=== PATIENT | female | born 1975 | race Caucasian/White ===

== ENCOUNTER 2017-11-22 13:50 | Outpatient (CLI) | payer OTHER | END 2017-11-22 13:51 | disposition home or self-care (01) | LOC: BICMAMMO 13:50 | PROVIDERS: ATTEND Internal Medicine | DX: Z12.31 Encounter for screening mammogram for malignant neoplasm of breast (principal); R92.1 Mammographic calcification found on diagnostic imaging of breast | CPT/HCPCS: 77063; 77067 ==

== ENCOUNTER 2018-02-06 14:31 | Outpatient (CLI) | payer OTHER ==
--- NOTE | 2018-02-06 17:04 | MRI ---
MRI CERVICAL SPINE WITHOUT CONTRAST: Date: 02/06/18 HISTORY: Skin paresthesia. COMPARISON: None. TECHNIQUE: Cervical spine MRI is performed without intravenous Gadolinium administration. Multisequential, multi planar imaging is performed. FINDINGS: Multiple sequences were repeated due to motion. There is straightening of the normal cervical lordosis, which may be due to patient position, muscle spasm, or cervical collar. Vertebral body height is maintained. There is no fracture. No significant STIR hyperintensity to suggest vertebral body edema or ligamentous injury. Visualized brain parenchyma, cervicomedullary junction, cervical cord, and the upper thoracic cord [place] ve a normal size and signal intensity. C2-C3: No significant central canal stenosis or foraminal narrowing. C3-C4: No significant central canal stenosis or foraminal narrowing. C4-C5: No significant central canal stenosis or foraminal narrowing. C5-C6: There is moderate loss of disc space height. Generalized disc bulge effaces the ventral subarachnoid space. There is mild central canal stenosis. Mild to moderate bilateral neural foraminal narrowing. C6-C7: No significant central canal stenosis or foraminal narrowing. C7-T1: No significant central canal stenosis or foraminal narrowing. IMPRESSION: Degenerative disc disease at C5-C6 as described above. There is mild central canal stenosis. There is mild to moderate bilateral foraminal narrowing. POS: [facility]
== END 2018-02-06 14:32 | disposition home or self-care (01) ==
LOC: SCSMRI 14:31
PROVIDERS: ATTEND Psychiatry & Neurology Neurology
DX: R20.2 Paresthesia of skin (principal); M50.322 Other cervical disc degeneration at C5-C6 level; M48.02 Spinal stenosis, cervical region; M99.81 Other biomechanical lesions of cervical region
CPT/HCPCS: 72141

== ENCOUNTER 2018-12-11 08:22 | Outpatient (CLI) | payer OTHER ==
--- NOTE | 2018-12-11 09:02 | MMO ---
Bilateral MAMMO Bilat Screen [facility]. CLINICAL HISTORY: Patient is 43 years old and is seen for screening. The patient has no family history of breast cancer. The patient has no personal history of cancer. VIEWS: The views performed were: bilateral craniocaudal with tomosynthesis; bilateral mediolateral oblique with tomosynthesis; and bilateral exaggerated craniocaudal. FILMS COMPARED: The present examination has been compared to a prior imaging study performed at [facility] on 11/22/2017. MAMMOGRAM FINDINGS: There are scattered fibroglandular densities. There are no suspicious masses, suspicious calcifications, or new areas of architectural distortion. IMPRESSION: THERE IS NO MAMMOGRAPHIC EVIDENCE OF MALIGNANCY. A ROUTINE FOLLOW-UP MAMMOGRAM IN 1 YEAR IS RECOMMENDED. THE RESULTS OF THIS EXAM WERE SENT TO THE PATIENT. ACR BI-RADS Category 1 - Negative MAMMOGRAPHY NOTE: 1. A negative mammogram report should not delay a biopsy if a dominant of clinically suspicious mass is present. 2. Approximately 10% to 15% of breast cancers are not detected by mammography. 3. Adenosis and dense breasts may obscure an underlying neoplasm. Reported by: CIRO FORD MD Electonically Signed: [id number]
== END 2018-12-11 08:23 | disposition home or self-care (01) ==
LOC: BICMAMMO 08:22
PROVIDERS: ATTEND Internal Medicine
DX: Z12.31 Encounter for screening mammogram for malignant neoplasm of breast (principal)
CPT/HCPCS: 77063; 77067

== ENCOUNTER 2019-11-21 12:06 | Outpatient (CLI) | payer OTHER ==
--- NOTE | 2019-11-21 12:50 | RAD ---
EXAM: Rib x-ray: Right 2 views chest one view HISTORY: Right-sided rib pain COMPARISON: None FINDINGS: No evidence for acute fracture or dislocation. No evidence for pneumothorax or pleural effusion. No evidence for a bone lesion. No evidence for other significant acute process. IMPRESSION: Unremarkable ribs.
== END 2019-11-21 12:07 | disposition home or self-care (01) ==
LOC: BICRAD 12:06
PROVIDERS: ATTEND Internal Medicine
DX: R07.81 Pleurodynia (principal)

== ENCOUNTER 2019-11-28 08:48 | Outpatient (CLI) | payer OTHER ==
--- NOTE | 2019-11-28 09:27 | MMO ---
Bilateral MAMMO Bilat Diag [facility]. CLINICAL HISTORY: Patient is 43 years old and is seen for diagnostic exam. The patient has no family history of breast cancer. The patient has no personal history of cancer. VIEWS: The views performed were: bilateral craniocaudal with tomosynthesis; bilateral mediolateral oblique with tomosynthesis; and bilateral mediolateral with tomosynthesis. FILMS COMPARED: The present examination has been compared to prior imaging studies performed at [facility] on 11/22/2017, 12/11/2018 and 11/28/2019, and at [facility] on 11/10/2016. This study has been interpreted with the assistance of computer-aided detection. MAMMOGRAM FINDINGS: There are scattered fibroglandular densities. No mammographic or sonograhic abnormality is seen at the site of palpable concern in the right breast. There are no suspicious masses, suspicious calcifications, or new areas of architectural distortion. IMPRESSION: THERE IS NO MAMMOGRAPHIC EVIDENCE OF MALIGNANCY. A ROUTINE FOLLOW-UP MAMMOGRAM IN 1 YEAR IS RECOMMENDED. THE RESULTS OF THIS EXAM WERE SENT TO THE PATIENT. ACR BI-RADS Category 2 - Benign finding MAMMOGRAPHY NOTE: 1. A negative mammogram report should not delay a biopsy if a dominant of clinically suspicious mass is present. 2. Approximately 10% to 15% of breast cancers are not detected by mammography. 3. Adenosis and dense breasts may obscure an underlying neoplasm. Reported by: RADHA SNOW MD Electonically Signed: [id number]
--- NOTE | 2019-11-28 09:34 | ULT ---
RIGHT BREAST ULTRASOUND: HISTORY: Palpable abnormality in the right upper outer breast. FINDINGS: Correlation is made with the mammograms of same date. Sonographic evaluation of the region of palpable concern was performed from the 9 through 11:00 posit ions of the right breast. No abnormality seen. IMPRESSION: BI-RADS Category 2-benign findings. Return to annual mammographic screening. BI-RADS 2 -- benign findings
== END 2019-11-28 08:49 | disposition home or self-care (01) ==
LOC: BICMAMMO 08:48
PROVIDERS: ATTEND Internal Medicine
DX: N63.10 Unspecified lump in the right breast, unspecified quadrant (principal)
CPT/HCPCS: 77066; G0279

== ENCOUNTER 2021-01-27 11:42 | Outpatient (CLI) | payer OTHER | END 2021-01-27 11:43 | disposition home or self-care (01) | LOC: BICMAMMO 11:42 | PROVIDERS: ATTEND Obstetrics & Gynecology | DX: Z12.31 Encounter for screening mammogram for malignant neoplasm of breast (principal) | CPT/HCPCS: 77063; 77067 ==

== ENCOUNTER 2021-07-13 09:59 | Outpatient (CLI) | payer BC ==
[2021-07-14 00:06] LABS: SARS-CoV-2 PCR by NAA Not Detected (NotDetected)
== END 2021-07-13 10:00 | disposition home or self-care (01) ==
LOC: LABBT 09:59
PROVIDERS: ATTEND Internal Medicine Gastroenterology
DX: Z20.822 Contact with and (suspected) exposure to COVID-19 (principal)
CPT/HCPCS: U0003; U0005

== ENCOUNTER 2021-07-16 10:51 | Day surgery (SDC) | payer BC ==
[2021-07-13 11:28] VITALS: BMI 30.6
[2021-07-16] MEDS ORDERED: Lidocaine 1% PF 5 ML VIAL ONE (12:47)
[2021-07-16] MEDS ORDERED: PROPOFOL 200 MG/20 ML VIAL ONE (12:47)
== END 2021-07-16 14:25 | disposition home or self-care (01) ==
LOC: SDC 10:51
PROVIDERS: ATTEND Internal Medicine Gastroenterology
PROC: 0DJD8ZZ Inspection of Lower Intestinal Tract, Via Natural or Artificial Opening Endoscopic (ICD-10-PCS; principal; 2021-07-16)
DX: Z12.11 Encounter for screening for malignant neoplasm of colon (principal); K57.30 Diverticulosis of large intestine without perforation or abscess without bleeding; K64.8 Other hemorrhoids; K64.4 Residual hemorrhoidal skin tags; K59.09 Other constipation; J45.909 Unspecified asthma, uncomplicated; Z80.0 Family history of malignant neoplasm of digestive organs; Z79.899 Other long term (current) drug therapy; Z88.2 Allergy status to sulfonamides
CPT/HCPCS: J2704

== ENCOUNTER 2024-03-20 19:34 | Inpatient (IN) | payer BC ==
[~2024-03-20 19:34] MED LIST: Iopamidol-370 76% 500 ML MDV (1 ML CHARGE) ONE
[2024-03-20 20:56] LABS: #Basophils 0.18 10x3/uL (0.0-0.2); %Basophils 1.5 % (0.0-1.0); %Eosinophils 0.8 % (0.0-10.0); %Monocytes 7.2 % (0.0-10.0); %Neutrophils 76.9 % (42.0-75.0); Hematocrit 32.3 % (36.0-47.0); Hemoglobin 9.4 g/dL (12.0-16.0); Mean Corpuscular HGB CONC 29.1 g/dL (32.0-36.0); Mean Corpuscular Hemoglobin 20.2 pg (27.0-31.0); Mean Corpuscular Volume 69.3 fL (78.0-98.0); Mean Platelet Volume 9.5 fL (7.4-10.4); Platelet Count 536 10x3/uL (130-400); RBC Distribution Width 19.7 % (11.5-14.5); Red Blood Cell (RBC) Count 4.66 mill/uL (4.20-5.40)
[2024-03-20 21:11] LABS: Burr Cells SLIGHT = 2-5 cells HPF (0-1); Hypochromia SLIGHT = 6-15 cells HPF (0-5); Microcytosis MODERATE=15-30 cells HPF (0-5); Ovalocytes MODERATE= 6-15 cells HPF (0-1); Platelet Adequacy Comment Platelets Increased; Polychromasia SLIGHT = 2-3 cells HPF (0-2); Tear Drops SLIGHT = 2-5 cells HPF (0-1)
[2024-03-20 21:19] LABS: BHCG - Serum Negative (NEGATIVE); Pregs Control Background? CLEAR/WHITE (CLR/WHITE); Pregs Control Bar Appear? YES (CONTROL BAR)
[2024-03-20 21:28] LABS: ALT (SGPT) 13 U/L (8-55); AST (SGOT) 15 U/L (5-34); Albumin 3.7 g/dL (3.5-5.0); Alkaline Phosphatase 97 U/L (40-110); Anion Gap 14 mmol/L (10-20); BUN (Urea Nitrogen) 9 mg/dL (7.0-18.7); Bilirubin, Total 0.3 mg/dL (0.2-1.2); Calc. Creatinine Clearance 0 mL/min (70-130); Calcium 9.1 mg/dL (7.8-10.44); Carbon Dioxide 19 mmol/L (22-29); Chloride 106 mmol/L (98-107); Estimated GFR 98; Globulin 3.7 g/dL (2.4-3.5); Glucose 110 mg/dL (70-105); Protein, Total 7.4 g/dL (6.0-8.3); Sodium 135 mmol/L (136-145); Troponin I 0.026 ng/mL (< 0.028)
[2024-03-20 21:56] LABS: Lipase 27 U/L (8-78)
[2024-03-20] MEDS ORDERED: Aspirin Chewable 81 MG TAB ONE (23:02)
[2024-03-20 23:43] LABS: Troponin I 0.443 ng/mL (< 0.028)
[2024-03-21] MEDS ORDERED: Enoxaparin 100 MG (1 mL) SYRINGE ONE (00:53)
[2024-03-21] MEDS ORDERED: Acetaminophen 650 MG Suppository PR PRN (01:44)
[2024-03-21] MEDS ORDERED: Nitroglycerin 0.4 MG TAB (25 Tab Bottle) SL PRN ×2 (01:44→12:58)
[2024-03-21] MEDS ORDERED: Morphine 2 MG/ML VIAL SLOW IVP PRN (02:24)
[2024-03-21] MEDS ORDERED: Nitroglycerin 2% Ointment 1 INCH/1 GM Packet ONE (03:31)
[2024-03-21 03:57] LABS: #Basophils 0.16 10x3/uL (0.0-0.2); %Basophils 1.1 % (0.0-1.0); %Eosinophils 0.3 % (0.0-10.0); %Lymphocytes 13.6 % (21.0-51.0); %Monocytes 5.9 % (0.0-10.0); %Neutrophils 78.4 % (42.0-75.0); Hematocrit 31.6 % (36.0-47.0); Hemoglobin 9.2 g/dL (12.0-16.0); Mean Corpuscular HGB CONC 29.1 g/dL (32.0-36.0); Mean Corpuscular Hemoglobin 20.1 pg (27.0-31.0); Mean Corpuscular Volume 69.1 fL (78.0-98.0); Mean Platelet Volume 9.6 fL (7.4-10.4); Platelet Count 499 10x3/uL (130-400); RBC Distribution Width 19.9 % (11.5-14.5); Red Blood Cell (RBC) Count 4.57 mill/uL (4.20-5.40)
[2024-03-21 04:04] LABS: Anion Gap 15 mmol/L (10-20); BUN (Urea Nitrogen) 7 mg/dL (7.0-18.7); Calc. Creatinine Clearance 0 mL/min (70-130); Calcium 8.8 mg/dL (7.8-10.44); Carbon Dioxide 17 mmol/L (22-29); Chloride 106 mmol/L (98-107); Estimated GFR 95; Glucose 108 mg/dL (70-105); Sodium 134 mmol/L (136-145)
[2024-03-21 04:06] LABS: Cardiac Risk 4.8 (Less than 4.5); Cholesterol 219 mg/dl (< 200 Desired); HDL Cholesterol 46 mg/dL (>60 Neg Risk); LDL Cholesterol, Calculated 144 mg/dL; Triglycerides 146 mg/dL (Less than 150)
[2024-03-21 04:17] LABS: Hemoglobin A1c 5.1 % (4.0-6.0)
[2024-03-21 05:59] VITALS: BMI 29.7
[2024-03-21] MEDS: Nitroglycerin 2% Ointment 1 INCH/1 GM Packet TOP SCH (06:01)
[2024-03-21] MEDS ORDERED: CATH FS SCH (09:00)
[2024-03-21] MEDS: Communication Order-Pharmacy FS ONE (09:00)
[2024-03-21] MEDS: Famotidine 20 MG TAB PO SCH (09:07)
[2024-03-21] MEDS: Sodium Chloride 0.9% 1,000 ML IV SCH ×2 (09:14→14:39)
[2024-03-21] MEDS ORDERED: Adenosine 6 mg (2 mL) VIAL ONE (09:42)
[2024-03-21] MEDS ORDERED: Nitroglycerin 50 MG/250 ML BOT 250 ML ONE (09:43)
[2024-03-21] MEDS ORDERED: Heparin 10,000 UNITS/ 10 ML VIAL ONE ×2 (09:43→10:04)
[2024-03-21] MEDS ORDERED: Verapamil 5 MG/2 ML VIAL ONE ×2 (09:43→10:04)
[2024-03-21] MEDS ORDERED: Enoxaparin 100 MG (1 mL) SYRINGE SC SCH ×2 (11:00→21:00)
[2024-03-21] MEDS ORDERED: Midazolam HCl 2 mg/2 ml Vial ONE (12:06)
[2024-03-21] MEDS ORDERED: fentaNYL 50 mcg/mL 1 mL Vial ONE (12:06)
[2024-03-21] MEDS ORDERED: Sodium Chloride 0.9% 200 ML IV PRN (12:58)
[2024-03-21] MEDS ORDERED: Acetaminophen/Codeine 30-300mg Tablet PO PRN ×2 (12:58)
[2024-03-21] MEDS: Acetaminophen 325 MG TAB PO PRN (14:44)
[2024-03-21 14:57] LABS: Critical Call Chem Troponin I RESULT DECREASING; Troponin I 10.684 ng/mL (< 0.028)
[2024-03-21] MEDS ORDERED: Iopamidol 370 76% 100 ML VIAL ONE (15:35)
[2024-03-21] MEDS: Atorvastatin Calcium 40 MG TAB PO SCH (20:05)
[2024-03-21] MEDS: Aspirin 81 mg Enteric Coated Tablet PO SCH (20:05)
[2024-03-21 20:39] LABS: Critical Call Chem Troponin I DECREASING; Troponin I 6.058 ng/mL (< 0.028)
[2024-03-22 01:29] LABS: Troponin I 4.593 ng/mL (< 0.028)
[2024-03-22 07:25] LABS: Troponin I 4.097 ng/mL (< 0.028)
[2024-03-22 10:09] LABS: #Basophils 0.17 10x3/uL (0.0-0.2); %Basophils 1.4 % (0.0-1.0); %Eosinophils 1.2 % (0.0-10.0); %Lymphocytes 12.4 % (21.0-51.0); %Monocytes 7.9 % (0.0-10.0); %Neutrophils 76.4 % (42.0-75.0); Burr Cells SLIGHT = 2-5 cells HPF (0-1); Elliptocytes SLIGHT = 2-5 cells HPF (0-1); Hematocrit 36.7 % (36.0-47.0); Hemoglobin 10.4 g/dL (12.0-16.0); Hypochromia MODERATE=16-30 cells HPF (0-5); Mean Corpuscular HGB CONC 28.3 g/dL (32.0-36.0); Mean Corpuscular Hemoglobin 19.9 pg (27.0-31.0); Mean Corpuscular Volume 70.3 fL (78.0-98.0); Mean Platelet Volume 9.4 fL (7.4-10.4); Platelet Adequacy Comment Platelets Increased; Platelet Count 517 10x3/uL (130-400); Polychromasia SLIGHT = 2-3 cells HPF (0-2); RBC Distribution Width 20.5 % (11.5-14.5); Red Blood Cell (RBC) Count 5.22 mill/uL (4.20-5.40)
[2024-03-22 11:15] LABS: Anion Gap 16 mmol/L (10-20); BUN (Urea Nitrogen) 6 mg/dL (7.0-18.7); Calc. Creatinine Clearance 126 mL/min (70-130); Carbon Dioxide 16 mmol/L (22-29); Chloride 107 mmol/L (98-107); Estimated GFR 100; Glucose 96 mg/dL (70-105); Potassium 3.8 mmol/L (3.5-5.1); Sodium 135 mmol/L (136-145)
[2024-03-22] MEDS ORDERED: Nitroglycerin 2% Ointment 1 INCH/1 GM Packet TOP PRN (15:18)
[2024-03-23 12:47] VITALS: BP 134/89; TEMP 97.8
== END 2024-03-23 17:07 | disposition home or self-care (01) | DRG 287 ==
LOC: ERS 19:34 → OBS 03-21 05:55 → OBSVTOIN 03-21 14:05
PROVIDERS: ADMIT Family Medicine; ATTEND Student in an Organized Health Care Education/Training Program
PROC: 4A023N7 Measurement of Cardiac Sampling and Pressure, Left Heart, Percutaneous Approach (ICD-10-PCS; principal; 2024-03-21)
PROC: B2111ZZ Fluoroscopy of Multiple Coronary Arteries using Low Osmolar Contrast (ICD-10-PCS; 2024-03-21)
PROC: B2151ZZ Fluoroscopy of Left Heart using Low Osmolar Contrast (ICD-10-PCS; 2024-03-21)
DX: I51.4 Myocarditis, unspecified (principal); D64.9 Anemia, unspecified; E78.5 Hyperlipidemia, unspecified; Z90.710 Acquired absence of both cervix and uterus; F41.9 Anxiety disorder, unspecified; Z88.2 Allergy status to sulfonamides; Z98.890 Other specified postprocedural states; Z79.82 Long term (current) use of aspirin; Z79.899 Other long term (current) drug therapy; Z82.3 Family history of stroke; D72.829 Elevated white blood cell count, unspecified
CPT/HCPCS: 36415; 71045; 71275; 80048; 80053; 80061; 83036; 83690; 83735; 83880; 84145; 84443; 84484; 84703; 85025; 85379; 93005; 93010; 93306; 93458; 93798; 96372; 99152; C1769; C1894; G0378; J0153; J1644; J1650; J2250; J3010; Q9967